=== PATIENT | female | born 1950 | race Hispanic/Latino ===

== ENCOUNTER 2018-09-28 09:40 | Outpatient (CLI) | payer MEDICARE, MEDICAID | END 2018-09-28 09:41 | disposition home or self-care (01) | LOC: RAD 09:40 ==

== ENCOUNTER 2018-12-23 09:25 | Day surgery (SDC) | payer MEDICARE, MEDICAID ==
[2018-10-28 07:43] VITALS: BMI 17.4
[2018-12-23] MEDS ORDERED: Lidocaine PF 2% (5 ml) Inj (For Cardiac Arrhy) ONE (09:58)
[2018-12-23] MEDS ORDERED: Propofol 10 mg/ml Inj (20 ML) ONE ×2 (09:58→10:37)
[2018-12-23] MEDS ORDERED: Naloxone 0.4 mg/ml Inj (Adult) ONE (10:40)
[2018-12-23] MEDS ORDERED: Simethicone 40 mg/0.6 ml Liquid (30 ml) ONE (10:41)
[2018-12-23] MEDS ORDERED: Sodium Chloride 0.9% 1,000 ML IV SCH (11:15)
[2018-12-23 11:32] VITALS: RESP 16
[2018-12-23 16:12] VITALS: BP 178/79; PULSE 69; TEMP 97.5; O2SAT 99
== END 2018-12-23 13:18 | disposition home or self-care (01) ==
LOC: ENDO 09:25
PROVIDERS: ATTEND Internal Medicine Gastroenterology
DX: K31.7 Polyp of stomach and duodenum (principal); K29.70 Gastritis, unspecified, without bleeding; K31.89 Other diseases of stomach and duodenum; D51.0 Vitamin B12 deficiency anemia due to intrinsic factor deficiency; I10 Essential (primary) hypertension; I25.10 Atherosclerotic heart disease of native coronary artery without angina pectoris; E78.00 Pure hypercholesterolemia, unspecified; Z95.5 Presence of coronary angioplasty implant and graft
CPT/HCPCS: 43239; 82948; 88305; 88342; J2310; J2704; J7030; J7040

== ENCOUNTER 2018-12-26 10:29 | Outpatient (CLI) | payer MEDICARE, MEDICAID | END 2018-12-26 10:30 | disposition home or self-care (01) | LOC: RAD 10:29 ==

== ENCOUNTER 2019-01-03 09:39 | Outpatient (CLI) | payer MEDICARE, MEDICAID | END 2019-01-03 09:40 | disposition home or self-care (01) | LOC: RAD 09:39 | DX: Z12.31 Encounter for screening mammogram for malignant neoplasm of breast (principal) ==

== ENCOUNTER 2019-01-12 09:03 | Outpatient (CLI) | payer MEDICARE, MEDICAID | END 2019-01-12 09:04 | disposition home or self-care (01) | LOC: RAD 09:03 ==

== ENCOUNTER 2019-01-16 09:01 | Outpatient (CLI) | payer MEDICARE, MEDICAID | END 2019-01-16 09:02 | disposition home or self-care (01) | LOC: RAD 09:01 ==

== ENCOUNTER 2019-02-06 12:30 | Outpatient (CLI) | payer MEDICARE, MEDICAID | END 2019-02-06 12:31 | disposition home or self-care (01) | LOC: RAD 12:30 ==